=== PATIENT | male | born 1970 | race Hispanic/Latino ===

== ENCOUNTER 2019-01-05 22:56 | Observation (INO) | payer OTHER ==
[~2019-01-05] VITALS: Ht 162.6 cm; Wt 92.1 kg
[2019-01-05 23:24] LABS: APPEARANCE,URINE Clear (CLEAR); BILIRUBIN,URINE Small (NEGATIVE); GLUCOSE, URINE (UA) >=1000 mg/dL (NEGATIVE); KETONES,URINE Trace mg/dL (NEGATIVE); LEUKOCYTE ESTERASE ,URINE Negative (NEGATIVE); NITRATE,URINE Negative (NEGATIVE); OCCULT BLOOD,URINE Negative (NEGATIVE); PROTEIN,URINE Negative (NEGATIVE); UROBILINOGEN,URINE >=8.0 mg/dL (0.2-1.0)
[2019-01-05 23:25] LABS: COLOR,URINE YELLOW (YELLOW)
[2019-01-05 23:33] LABS: BACTERIA,URINE Rare /HPF (None Seen); RBC,URINE 0-1 /HPF (0-1); SQUAMOUS EPITHELIAL CELL,UR 0-2 /HPF (0-2)
[2019-01-05] MEDS ORDERED: ONDANSETRON HCL 4 MG/2 ML VIAL ONE (23:42)
[2019-01-05] MEDS ORDERED: METOCLOPRAMIDE 10 MG/2 ML VIAL ONE (23:42)
[2019-01-05 23:56] LABS: BASOPHILS % (AUTO) 1.3 % (0.0-5.0); EOSINOPHILS % (AUTO) 5.1 % (0.0-8.0); HEMATOCRIT 44.4 % (42-54); LYMPHOCYTES % (AUTO) 32.9 % (21.0-51.0); MEAN CORPUSCULAR HEMOGLOBIN 30.2 pg (27.0-33.0); MEAN CORPUSCULAR HGB CONC 34.3 g/dL (32.0-36.0); MEAN CORPUSCULAR VOLUME 87.9 fL (79-99); MONOCYTES % (AUTO) 8.8 % (3.0-13.0); NEUTROPHILS % (AUTO) 51.9 % (40.0-77.0); NUCLEATED RED BLOOD CELLS 0.1 % (0.0-0.19); PLATELET COUNT (AUTO) 206 K/uL (130-400); RED BLOOD CELL COUNT(AUTO) 5.05 MIL/uL (4.50-6.20); RED CELL DISTRIBUTION WIDTH 13.2 % (11.0-15.5); WHITE BLOOD COUNT (AUTO) 6.9 K/uL (4.8-10.8)
[2019-01-06 00:03] LABS: AMPHET/METH SCREEN,URINE NEGATIVE (NEGATIVE); BARBITURATE SCREEN, URINE NEGATIVE (NEGATIVE); BENZODIAZEPINES SCREEN,URINE NEGATIVE (NEGATIVE); CANNABINOID SCREEN,URINE NEGATIVE (NEGATIVE); COCAINE SCREEN,URINE NEGATIVE (NEGATIVE); OPIATE SCREEN,URINE NEGATIVE (NEGATIVE); PHENCYCLIDINE SCREEN,URINE NEGATIVE (NEGATIVE)
[2019-01-06 00:09] LABS: CREATININE 1.1 mg/dL (0.5-1.5); POTASSIUM 3.6 mmol/L (3.5-5.1)
[2019-01-06 00:11] LABS: INR 0.94 (0.85-1.15); PARTIAL THROMBOPLASTIN TIME 26.8 SEC (26.3-35.5); PROTHROMBIN TIME 9.9 SEC (9.6-11.6)
[2019-01-06 00:14] LABS: ALBUMIN 3.5 g/dL (3.5-5.0); BILIRUBIN,TOTAL 0.6 mg/dL (0.2-1.0); TOTAL PROTEIN, SERUM 7.4 g/dL (6.0-8.3)
[2019-01-06] MEDS ORDERED: IOHEXOL 350 MG/ML 100ML INFUS..BTL IV ONE (02:02)
[2019-01-06] MEDS ORDERED: MAG HYDROX/AL HYDROX/SIMETH ES 30 ML SUSP UDCUP ONE (02:15)
[2019-01-06] MEDS ORDERED: LIDOCAINE HCL 2% VISCOUS 15 ML UDCUP ONE (02:15)
[2019-01-06] MEDS ORDERED: THIAMINE HCL 100 MG/ML 2ML VIAL ONE (02:16)
[2019-01-06] MEDS ORDERED: ACETAMINOPHEN EXTRA STRENGTH 500 MG TABLET ONE (02:16)
[2019-01-06] MEDS ORDERED: SODIUM CHLORIDE 0.9% 250 ML IV ONE (02:16)
--- NOTE | 2019-01-06 10:32 | NUR ---
MASSIMO Bill met with pt and common law Marysol Bermudez [phone]. Pt lives with , is on SSD and is independent of ADLS, no DME or in home care services. Pt has PCP and rx coverage. Denies dc needs. Plan is home with Addendum: 01/06/19 at 1033 by GILL HANKS Amended: Links added.
--- NOTE | 2019-01-06 14:53 | NUR ---
DC DC INSTRUCTIONS GIVEN TO PT / PT S SPOUSE, INSTRUCTED TO F/ WITH PCP [facility], PT VERBALIZED UNDERSTANDING , PIV REMOVED FROM RIGHT AC, SITE ASYMPTOMATIC, CATHETER INTACT, PT DENIES ANY PAIN OR DISCOMFORTS. ACCOMAPANIED BY SPOUSE ,
== END 2019-01-06 15:42 | disposition home or self-care (01) ==
LOC: EDH 22:56 → EDHIP 01-06 02:05
PROVIDERS: ADMIT Internal Medicine; ATTEND Internal Medicine
DX: R42 Dizziness and giddiness (principal); R55 Syncope and collapse; R51 Headache; E11.9 Type 2 diabetes mellitus without complications; E78.5 Hyperlipidemia, unspecified; I10 Essential (primary) hypertension; Z86.73 Personal history of transient ischemic attack (TIA), and cerebral infarction without residual deficits; J44.9 Chronic obstructive pulmonary disease, unspecified; Z96.698 Presence of other orthopedic joint implants; Z72.0 Tobacco use; Z79.899 Other long term (current) drug therapy
CPT/HCPCS: 36415; 70450; 70496; 70498; 80053; 80305; 81001; 82009; 82550; 82948 ×2; 83690; 83735; 84425; 84484; 85025; 85610; 85730; 87804 ×2; 93005; 99284; G0378 ×14; J2405; J2765; J3411; J7030; Q9967

== ENCOUNTER 2020-04-01 09:41 | Emergency (ER) | payer OTHER ==
[2020-04-01] MEDS ORDERED: ALBUTEROL INHALER 90MCG/INH IH ONE (11:20)
[2020-04-01] MEDS ORDERED: ACETAMINOPHEN EXTRA STRENGTH 500 MG TABLET ONE (11:20)
== END 2020-04-01 15:18 | disposition home or self-care (01) ==
LOC: EDH 09:41
DX: I10 Essential (primary) hypertension (principal); E11.9 Type 2 diabetes mellitus without complications; E87.1 Hypo-osmolality and hyponatremia; E78.5 Hyperlipidemia, unspecified; Z87.891 Personal history of nicotine dependence; Z20.828 Contact with and (suspected) exposure to other viral communicable diseases
CPT/HCPCS: 36415; 71045; 80053; 82550; 84484; 85025; 87804 ×2; 87880; 93005; 99285; U0003

== ENCOUNTER 2021-05-15 14:09 | Emergency (ER) | payer OTHER ==
[~2021-05-15] VITALS: Ht 162.6 cm; Wt 72.6 kg
[2021-05-15 14:11] VITALS: BP 148/91
== END 2021-05-15 15:30 | disposition left against medical advice (07) ==
LOC: EDH 14:09
DX: S01.81XA Laceration without foreign body of other part of head, initial encounter (principal); Z53.21 Procedure and treatment not carried out due to patient leaving prior to being seen by health care provider